=== PATIENT | female | born 1990 | race Caucasian/White ===

== ENCOUNTER → 2020-04-14 | Outpatient (CLI) | payer OTHER ==
[~2020-04-14] MED LIST: ACYC800 PO; Bactrim 400-801 EACH PO; CIPR500 PO; ENOX60I SC; HEPARIN 1010 UNIT/1 SC; INSUL100I SC; K-Dur20 MEQ PO; Norco 5-325 Ta1 EACH PO; OXYACE5T PO; ROSU5; URSO300 PO; Vitafol-Ob+Dha1 EACH PO; WARF1 PO; WARF10 PO; WARF5 PO; Zofran Odt4 MG SL
[2020-04-17 15:10] LABS: HPV 16 Negative (Negative); HPV 18 Negative (Negative); HPV OTHER HR TYPES Negative (Negative)
== END | disposition home or self-care (01) ==
LOC: LAB SHORT 15:50 → LAB 15:50
PROVIDERS: Obstetrics & Gynecology
DX: Z01.419 Encounter for gynecological examination (general) (routine) without abnormal findings (principal)
CPT/HCPCS: 87624; G0123

== ENCOUNTER → 2021-11-24 | Outpatient (CLI) | payer OTHER ==
[2021-11-25 16:07] LABS: HPV 16 Negative (Negative); HPV 18 Negative (Negative); HPV OTHER HR TYPES Negative (Negative)
== END | disposition home or self-care (01) ==
LOC: LAB SHORT 11:46 → LAB 11:46
PROVIDERS: Obstetrics & Gynecology
DX: Z01.419 Encounter for gynecological examination (general) (routine) without abnormal findings (principal)
CPT/HCPCS: 87624; G0123